=== PATIENT | male | born 1990 | race Caucasian/White ===

== ENCOUNTER 2017-11-12 12:38 | Emergency (ER) | payer SELFPAY, BC, OTHER ==
[2017-11-12] MEDS: CLINDAMYCIN 300 MG CAP PO ×2 (14:29→14:31)
== END 2017-11-12 15:03 | disposition home or self-care (01) ==
LOC: FTE 12:38
DX: L02.414 Cutaneous abscess of left upper limb (principal)
CPT/HCPCS: 73080; 73080-LT; 87070; 99283-25

== ENCOUNTER 2018-07-12 06:53 | Emergency (ER) | payer MEDICAID ==
[2018-07-12] MEDS: HYDROCODONE/APAP (5/325) TAB PO (08:43)
[2018-07-12] MEDS: TRIMETHOPRIM/SULFAMETHOX (DS) TAB PO (08:44)
[2018-07-12] MEDS: CEPHALEXIN 500 MG CAP PO (08:44)
[2018-07-12] MEDS: IBUPROFEN 600 MG TAB PO (08:44)
== END 2018-07-12 10:16 | disposition home or self-care (01) ==
LOC: FTE 06:53
DX: M79.602 Pain in left arm (principal)
CPT/HCPCS: 73080; 73080-LT; 99283-25